=== PATIENT | male | born 1980 | race Caucasian/White ===

== ENCOUNTER 2018-04-25 11:31 | Emergency (ER) | payer MEDICARE, MEDICAID ==
[~2018-04-25] VITALS: Ht 193 cm; Wt 79.0 kg
[~2018-04-25 11:31] MED LIST: ZOF4T PO
[2018-04-25] MEDS ORDERED: dexamethasone sod phosphate 10mg/ml inj IV STA (12:02)
[2018-04-25] MEDS ORDERED: diphenhydrAMINE 50 mg/ml inj IV ONE (12:05)
[2018-04-25] MEDS ORDERED: iohexol 300mg/ml 100ml inj. ONE (12:32)
[2018-04-25] MEDS ORDERED: DOXY100C43 PO (13:29)
[2018-04-25] MEDS ORDERED: CEPH-571 PO (13:29)
[2018-04-25 13:51] VITALS: BP 119/71
== END 2018-04-25 13:59 | disposition home or self-care (01) ==
LOC: ER 11:31
DX: L03.211 Cellulitis of face (principal); Z88.7 Allergy status to serum and vaccine; Z88.1 Allergy status to other antibiotic agents
CPT/HCPCS: 70487; 96374; 96375; 99284; J1100; J1200; Q9967